=== PATIENT | male | born 1940 | race Caucasian/White ===

== ENCOUNTER 2016-03-30 21:19 | Outpatient (CLI) | payer MEDICARE, OTHER | END 2016-03-30 21:20 | disposition home or self-care (01) | DX: M79.1 Myalgia (principal); M25.50 Pain in unspecified joint ==

== ENCOUNTER 2016-04-14 13:22 | Outpatient (CLI) | payer MEDICARE, OTHER | END 2016-04-14 13:23 | disposition home or self-care (01) | DX: M85.88 Other specified disorders of bone density and structure, other site (principal) ==

== ENCOUNTER 2016-07-06 08:05 | Day surgery (SDC) | payer MEDICARE, OTHER ==
[2016-07-06] MEDS ORDERED: LACTATED RINGERS 1,000 ML IV ONE (08:30)
[2016-07-06] MEDS ORDERED: MIDAZOLAM 2 MG/2 ML VIAL IVP ONE (09:15)
[2016-07-06] MEDS ORDERED: fentaNYL 100 MCG/2 ML VIAL IVP ONE (09:15)
[2016-07-06 10:18] VITALS: BP 129/70
--- NOTE | 2016-07-06 10:22 | PROCEDURE REPORT ---
DATE OF PROCEDURE: 07/06/2016 00:00:00 PROCEDURE PERFORMED: Colonoscopy with biopsy. ENDOSCOPIST: Nathaly Anderson M.D. PRIMARY CARE: Franklin Nuñez M.D. INDICATION: History of ulcerative colitis and polyps. PREMEDICATION: Fentanyl 100 mcg, Versed 5 mg IV titration. After informed consent was obtained, patient was placed in the left lateral decubitus position. The v ideo colonoscope was placed in the rectum and slowly advanced. The scope was easily passed to the cec um. On slow withdrawal, the scope was removed. The patient tolerated the procedure well. BLOOD LOSS: None. COMPLICATIONS: None. FINDINGS: Mild scarring, but no sissy inflammation in the left and sigmoid colon. This included loss of haustra, decreased vascular pattern, and a "pipe-like" appearance to the colon. Otherwise negative colonoscopy to cecum. Biopsies were taken 2 every 10 cm and placed in right, transverse, and left co kyle bottles. The patient and I had a long discussion about his prednisone. He really wants to stay on 10 mg of pre dnisone. I told him it is time to start to give alternatives. He particularly likes it because it hel ps resolve some of his rheumatologic symptoms, but says there may be some GI symptoms as well. I told him that I will not continue to refill this after this next refill, and that he needs to make an johnnie ointment to come see me to discuss other options for his colon. Once we have done that and switched h im to different medication, then I told him he will have to have his shirt operator direct his predni sone therapy. I do not think it is reasonable for him to continue on prednisone indefinitely. JOB #: [id number] EXT JOB #:[id number]
== END 2016-07-06 08:06 | disposition home or self-care (01) ==
LOC: SDS 08:05
PROVIDERS: ATTEND Internal Medicine Gastroenterology
PROC: 0DBL8ZX Excision of Transverse Colon, Via Natural or Artificial Opening Endoscopic, Diagnostic (ICD-10-PCS; 2016-07-06)
PROC: 0DBF8ZX Excision of Right Large Intestine, Via Natural or Artificial Opening Endoscopic, Diagnostic (ICD-10-PCS; 2016-07-06)
PROC: 0DBG8ZX Excision of Left Large Intestine, Via Natural or Artificial Opening Endoscopic, Diagnostic (ICD-10-PCS; principal; 2016-07-06 09:00)
DX: Z12.11 Encounter for screening for malignant neoplasm of colon (principal); Z86.010 Personal history of colon polyps; Z87.19 Personal history of other diseases of the digestive system; I10 Essential (primary) hypertension; Z79.82 Long term (current) use of aspirin; Z79.52 Long term (current) use of systemic steroids
CPT/HCPCS: 45380; J7120; 88305

== ENCOUNTER 2018-05-16 10:36 | Outpatient (CLI) | payer MEDICARE, OTHER ==
[2018-05-16 13:00] LABS: HB2 TOTAL 16.4 g/dL; HEMOGLOBIN A1C 0.79 g/dL; HEMOGLOBIN A1C % 6.6 % (4.6-6.2)
== END 2018-05-16 10:37 | disposition home or self-care (01) ==
LOC: LAB.WCP 10:36
PROVIDERS: ATTEND Family Medicine
DX: E11.9 Type 2 diabetes mellitus without complications (principal)
CPT/HCPCS: 36415; 83036

== ENCOUNTER 2019-03-01 09:11 | Outpatient (CLI) | payer MEDICARE, OTHER ==
[2019-03-01 13:15] LABS: BUN - BLOOD UREA NITROGEN 18 mg/dL (6-20); CALCIUM 9.3 mg/dL (8.5-10.3); CARBON DIOXIDE - CO2 27 mmol/L (21-32); CHLORIDE 101 mmol/L (101-111); CHOL/HDL RATIO 4.1 (<5.0); CHOLESTEROL 252 mg/dL; CREATININE 0.9 mg/dL (0.6-1.2); GFR - MDRD 81 (>89); GLUCOSE 102 mg/dL (70-100); HDL CHOLESTEROL 61 mg/dL; LDL CHOLESTEROL,CALCULATED 162 mg/dL; LDL/HDL RATIO 2.7 (<3.6); SODIUM 135 mmol/L (135-145); VLDL CHOLESTEROL 29 mg/dL
[2019-03-01 13:17] LABS: CREATININE,URINE 144.9 mg/dL; MICROALBUM/CREATININE RATIO,UR 5.5 ug/mg (<30.0); MICROALBUMIN,URINE 0.8 mg/dL (0-300.0)
[2019-03-01 13:28] LABS: HB2 TOTAL 15.4 g/dL; HEMOGLOBIN A1C 0.68 g/dL; HEMOGLOBIN A1C % 6.2 % (4.6-6.2)
== END 2019-03-01 23:59 | disposition home or self-care (01) ==
LOC: LAB.WCP 09:11
PROVIDERS: ATTEND Family Medicine
DX: E11.9 Type 2 diabetes mellitus without complications (principal); E78.5 Hyperlipidemia, unspecified; I10 Essential (primary) hypertension; K51.90 Ulcerative colitis, unspecified, without complications
CPT/HCPCS: 36415; 80048; 80061; 82043; 82570; 83036; 83721; 84443

== ENCOUNTER 2019-09-10 08:19 | Outpatient (CLI) | payer MEDICARE, OTHER ==
[2019-09-10 12:32] LABS: BASOPHILS # (AUTO) 0.1 10^3/uL (0.0-0.1); EOSINOPHILS # (AUTO) 0.4 10^3/uL (0.0-0.7); EOSINOPHILS % (AUTO) 5.3 %; HGB - HEMOGLOBIN 15.6 g/dL (14.0-18.0); LYMPHOCYTES # (AUTO) 3.1 10^3/uL (1.5-3.5); LYMPHOCYTES % (AUTO) 42.3 %; MEAN CORPUSCULAR HEMOGLOBIN 30.2 pg (27.0-31.0); MEAN CORPUSCULAR HGB CONC 32.6 g/dL (32.0-36.0); MEAN CORPUSCULAR VOLUME 92.8 fL (80.0-94.0); MEAN PLATELET VOLUME 11.8 fL (7.4-11.4); MONOCYTES # (AUTO) 0.6 10^3/uL (0.0-1.0); MONOCYTES % (AUTO) 8.3 %; NEUTROPHILS # (AUTO) 3.1 10^3/uL (1.5-6.6); NEUTROPHILS % (AUTO) 42.7 %; PLT - PLATELET COUNT 272 10^3/uL (130-450); RED BLOOD COUNT 5.16 10^6/uL (4.70-6.10); RED CELL DISTRIBUTION WIDTH 13.7 % (12.0-15.0); WHITE BLOOD COUNT 7.3 x10^3/uL (4.8-10.8)
[2019-09-10 13:06] LABS: ALBUMIN 4.3 g/dL (3.2-5.5); ALBUMIN/GLOBULIN RATIO 1.3 (1.0-2.2); ALKALINE PHOSPHATASE 107 IU/L (42-121); ALT ALANINE AMINOTRANSFERASE 41 IU/L (10-60); AST ASPARTATE AMINOTRANSFERASE 27 IU/L (10-42); BILIRUBIN,TOTAL 0.6 mg/dL (0.2-1.0); BUN - BLOOD UREA NITROGEN 27 mg/dL (6-20); CALCIUM 9.6 mg/dL (8.5-10.3); CARBON DIOXIDE - CO2 27 mmol/L (21-32); CHLORIDE 100 mmol/L (101-111); CHOL/HDL RATIO 4.1 (<5.0); CHOLESTEROL 264 mg/dL; CREATININE 0.9 mg/dL (0.6-1.2); GLUCOSE 119 mg/dL (70-100); HDL CHOLESTEROL 65 mg/dL; LDL CHOLESTEROL,CALCULATED 179 mg/dL; LDL/HDL RATIO 2.8 (<3.6); SODIUM 136 mmol/L (135-145); TOTAL PROTEIN 7.7 g/dL (6.7-8.2); VLDL CHOLESTEROL 20 mg/dL
[2019-09-10 13:07] LABS: CREATININE,URINE 81.3 mg/dL; MICROALBUM/CREATININE RATIO,UR 3.7 ug/mg (<30.0); MICROALBUMIN,URINE 0.3 mg/dL (0-300.0)
[2019-09-10 13:34] LABS: HB2 TOTAL 16.4 g/dL; HEMOGLOBIN A1C 0.69 g/dL
== END 2019-09-10 23:59 | disposition home or self-care (01) ==
LOC: LAB.WCP 08:19
PROVIDERS: ATTEND Family Medicine
DX: B35.6 Tinea cruris (principal); E11.9 Type 2 diabetes mellitus without complications; K51.90 Ulcerative colitis, unspecified, without complications; I25.10 Atherosclerotic heart disease of native coronary artery without angina pectoris
CPT/HCPCS: 36415; 80053; 80061; 82043; 82570; 83036; 83721; 84443; 85025

== ENCOUNTER 2020-08-04 08:00 | Outpatient (CLI) | payer MEDICARE, OTHER ==
[2020-08-04 18:10] LABS: BASOPHILS # (AUTO) 0.1 10^3/uL (0.0-0.1); BASOPHILS % (AUTO) 0.8 %; EOSINOPHILS # (AUTO) 0.3 10^3/uL (0.0-0.7); EOSINOPHILS % (AUTO) 4.5 %; HCT - HEMATOCRIT 45.2 % (42.0-52.0); HGB - HEMOGLOBIN 14.5 g/dL (14.0-18.0); LYMPHOCYTES # (AUTO) 2.4 10^3/uL (1.5-3.5); LYMPHOCYTES % (AUTO) 39.1 %; MEAN CORPUSCULAR HEMOGLOBIN 29.5 pg (27.0-31.0); MEAN CORPUSCULAR HGB CONC 32.1 g/dL (32.0-36.0); MEAN CORPUSCULAR VOLUME 92.1 fL (80.0-94.0); MEAN PLATELET VOLUME 12.2 fL (7.4-11.4); MONOCYTES # (AUTO) 0.4 10^3/uL (0.0-1.0); NEUTROPHILS % (AUTO) 48.4 %; PLT - PLATELET COUNT 269 10^3/uL (130-450); RED BLOOD COUNT 4.91 10^6/uL (4.70-6.10); WHITE BLOOD COUNT 6.2 x10^3/uL (4.8-10.8)
[2020-08-04 18:32] LABS: ALBUMIN 4.3 g/dL (3.2-5.5); ALBUMIN/GLOBULIN RATIO 1.4 (1.0-2.2); ALKALINE PHOSPHATASE 87 IU/L (42-121); ALT ALANINE AMINOTRANSFERASE 29 IU/L (10-60); AST ASPARTATE AMINOTRANSFERASE 23 IU/L (10-42); BUN - BLOOD UREA NITROGEN 23 mg/dL (6-20); CALCIUM 9.2 mg/dL (8.5-10.3); CARBON DIOXIDE - CO2 24 mmol/L (21-32); CHLORIDE 103 mmol/L (101-111); CHOLESTEROL 250 mg/dL; GFR - MDRD 72 (>89); GLUCOSE 100 mg/dL (70-100); HDL CHOLESTEROL 63 mg/dL; LDL CHOLESTEROL,CALCULATED 167 mg/dL; LDL/HDL RATIO 2.7 (<3.6); POTASSIUM 4.8 mmol/L (3.5-5.0); SODIUM 133 mmol/L (135-145); TOTAL PROTEIN 7.4 g/dL (6.7-8.2); TRIGLYCERIDES 98 mg/dL; VLDL CHOLESTEROL 20 mg/dL
[2020-08-04 18:38] LABS: THYROID STIMULATING HORMONE 0.83 uIU/mL (0.34-5.60)
[2020-08-04 20:00] LABS: ESTIMATED AVERAGE GLUCOSE 137 mg/dL (70-100); HEMOGLOBIN A1c% 6.4 % (4.27-6.07)
== END 2020-08-04 23:59 | disposition home or self-care (01) ==
LOC: LAB.WCP 08:00
PROVIDERS: ATTEND Internal Medicine
DX: I10 Essential (primary) hypertension (principal); Z79.899 Other long term (current) drug therapy; D69.2 Other nonthrombocytopenic purpura; R94.5 Abnormal results of liver function studies; E78.5 Hyperlipidemia, unspecified; E11.9 Type 2 diabetes mellitus without complications; R97.20 Elevated prostate specific antigen [PSA]
CPT/HCPCS: 36415; 80053; 80061; 82043; 82570; 83036; 83721; 84153; 84443; 85025

== ENCOUNTER 2021-09-27 08:00 | Outpatient (CLI) | payer MEDICARE, OTHER | END 2021-09-27 23:59 | disposition home or self-care (01) | LOC: LAB.WCP 08:00 | PROVIDERS: ATTEND Physician Assistant Medical | DX: J06.9 Acute upper respiratory infection, unspecified (principal); Z20.822 Contact with and (suspected) exposure to COVID-19 ==